=== PATIENT | male | born 1970 | race Caucasian/White ===

== ENCOUNTER 2016-12-09 19:53 | Emergency (ER) | payer OTHER ==
[~2016-12-09] VITALS: Ht 177.8 cm; Wt 79.1 kg
[2016-12-09 20:07] VITALS: BP 126/80; PULSE 93; RESP 18; O2SAT 95
[2016-12-09 20:36] LABS: BASOPHILS % (AUTO) 0.3 % (0-3); EOSINOPHILS % (AUTO) 5.8 % (0-5); MONOCYTES % (AUTO) 5.4 % (4-12); Mean Corpuscular Hemoglobin 30.6 pg (27.0-35.0); Mean Corpuscular Volume 94.7 fL (81-100); Platelet Count 357 bil/L (150-400)
--- NOTE | 2016-12-09 21:47 | ED.REPORT ---
HPI-General Illness Date of Service Dec 09, 2016 ED Provider: Dr. Ricco Robertson The patient is a 46 year old male who presents to the ED due to an itchy and painful insect bite to the anterior right wrist onset yesterday. Patient has diffuse eczema on his hands, arms, back and bilateral thighs. He also reports numbness in his right foot and sciatic pain. Nursing Notes Stated Complaint: BUMPS ON SKIN,NUMBNESS IN FEET Chief Complaint: General Complaint Nursing Notes Reviewed: Yes Allergies: Coded Allergies: codeine (Verified Allergy, Mild, 12/09/16) stomach cramp Scheduled Ceramides 1,3,6-11 (Cerave) 453 Gm Cream..g. 453 GM TP BID Cetirizine HCl (Zyrtec) 10 Mg Capsule 10 MG PO HS Triamcinolone Acet (Triamcinolone Acetonide Cream) 1 Applic/0.25 Gm Cr 1 APPLIC EXT BID Scheduled PRN Ibuprofen (Ibuprofen) 600 Mg Tablet 600 MG PO QID PRN PRN For Pain General Time Seen by MD: 21:47 Chief Complaint Rash Hx Obtained From: Patient Arrived By: Walk-in Sudden in Onset?: Yes Onset Occurred: Yesterday Symptom Duration: Since onset Location: : Wrist right Quality: Itching, Painful Radiation: : Does not radiate Severity: Current: Mild Associated with: Reports: Rash Recent Healthcare: No recent doctor visit, No recent hospitalization Similar Sx Previous: No Past Medical History Past Medical History eczema multiple back injuries Smoking History Unknown if Ever Smoker Social History Drug Use: THC Other Social History: Local resident Ambulatory Status Independent Review of Systems Full Review of Systems GI: Denies: Abdominal pain Musculoskeletal: Reports: Back pain, Lumbar pain, Denies: Joint swelling, Neck pain Skin: Reports Itching, Reports Rash (insect bite anterior right wrist ) Neurologic: Reports: Numbness (right foot numbness) Complete sys rev & neg: except as marked. Physical Exam Vital Signs Vital Signs Date Time Temp Pulse Resp B/P Pulse Ox O2 Delivery O2 Flow Rate FiO2 12/09/16 23:40 37 68 18 130/73 97 Room Air 12/09/16 20:07 36.4 93 18 126/80 95 Room Air Initial VS: Reviewed General/Constitutional: Awake, Alert, No acute distress, Cooperative Head / Eyes: Atraumatic, Normocephalic, PERRL, EOMI Neck: Atraumatic, Supple Flank / Spine / Paraspinal: Positive: Lumbar spine tender... (L5 S1) Upper Extremities Upper Extremity / MS: Atraumatic, Inspection NL, No deformity Wrist / Hand: Neurologic intact, Vascular intact, No ligamentous injury Trauma / Burn / Environmental: Positive: Bite injury excoriation and discharge from insect bite anterior right wrist Ankle / Foot: Atraumatic, Inspection NL, No deformity Color / Condition: Positive: Rash present eczema grossly excoriated on bilateral hands and lower back linear rake molina on flank and lower back nodular bites and lesions on neck, fairly excoriated Neurologic: Oriented X3, Speech NL, No motor deficits Interpretation & Diagnostics Lab Results Interpretation Result Diagram: 12/09/16202412/09/162024 Test 12/09/16 20:25 White Blood Count 11.6th/mm3 (3.8-10.1) Red Blood Count 5.33mil/mm3 (4.40-5.80) Hemoglobin 16.3g/dL (13.8-17.2) Hematocrit 50.5% (41.0-50.0) Mean Corpuscular Volume 94.7fL (81-100) Mean Corpuscular Hemoglobin 30.6pg (27.0-35.0) Mean Corpuscular Hemoglobin Concent 32.3% (32.0-37.0) Red Cell Distribution Width 12.3% (12.3-15.4) Platelet Count 357bil/L (150-400) Neutrophils (%) (Auto) 63.0% (40-74) Lymphocytes (%) (Auto) 25.2% (14-46) Monocytes (%) (Auto) 5.4% (4-12) Eosinophils (%) (Auto) 5.8% (0-5) Basophils (%) (Auto) 0.3% (0-3) Sodium Level 138mEq/L (134-144) Potassium Level 4.0mEq/L (3.5-5.2) Chloride Level 98mEq/L (97-108) Carbon Dioxide Level 27mmol/L (18-29) Blood Urea Nitrogen 18mg/dL (6-24) Creatinine 0.72mg/dL (0.76-1.27) Estimat Glomerular Filtration Rate 124mL/min (>59) Glucose Level 131mg/dL (60-99) Calcium Level 9.8mg/dL (8.5-10.1) Total Bilirubin 0.8mg/dL (0.0-1.2) Aspartate Amino Transf (AST/SGOT) 52U/L (0-50) Alanine Aminotransferase (ALT/SGPT) 54U/L (0-44) Alkaline Phosphatase 87U/L (25-150) Total Protein 8.3g/dL (6.4-8.4) Albumin 4.1g/dL (3.4-5.0) Hold Jaffe Top Tube Received (Received) X-Ray Interpretation Xray Interpretation: BACK X-RAY IMPRESSION: no acute findings Interpretation / Wet Read by: Wet read ED physician Re-Eval/Medical Decision Med Decision/Clinical Course 38-year-old history of eczema presents with multiple unrelated complaints. He has insect bites on his neck and wrist. One is excoriated mildly infected. He has generalized eczema and is not on any treatment for that presently. Provided with Kenalog cream and Claritin. He has incidental findings of decreased sensation in the L5-S1 distribution consistent with chronic sciatica. L spines essentially unremarkable with minor degenerative changes. Discharged to outpatient follow-up. Counseled Regarding: Diagnosis, Lab results, Need for follow-up, When/why to return to ED Discharge & Departure Primary Impression: Eczema Eczema type: unspecified Qualified Code: L30.9 - Dermatitis, unspecified Additional Impressions: Sciatica Laterality: bilateral Qualified Code: M54.31 - Sciatica, right side Insect bites Encounter type: initial encounter Qualified Code: W57.XXXA - Bitten or stung by nonvenomous insect and other nonvenomous arthropods, initial encounter Disposition: Home Discharge Condition All VS Reviewed: Yes Condition: Stable Patient Instructions: Eczema (ED) Additional Instructions: Thank you for entrusting us with your care today. You have eczema, complicated by insect bites. Apply antibiotic ointment to the bite on your wrist that has become infected. Apply Kenalog cream to the eczema affected areas. Do not apply Kenalog to your face. Use a moisturizer at least twice daily. The best available is called CeraVe, and this is available in large problems at [facility] or any drug store. Shower daily with a nondrying soap such as Neutrogena, or use Cetaphil cleanser , which is also widely available [id number]. You can use Zyrtec or Claritin daily for itch. I have attached a referral to the [facility], where you can pursue follow up care with a primary care physician. Return to the Emergency Department if you experience any new or worsening symptoms. Your feet symptoms appear to be from pressure on the nerve. Your x-ray does not show a fracture or dislocation. Follow up with your doctor in establish local care. You can use ibuprofen four times daily.. Referrals: [facility] (PCP) [facility] Att[facility] Portion of this note were transcribed by Ariela Ortiz. I, Dr. Robertson, personally performed the history, physical exam, and medical decision-making: I reviewed and confirmed the accuracy for the information in the transcribed note. Signed by: sharad Vang, 12/10/16 0030 copies to: [facility] Ricco Robertson MD Dec 09, 2016 21:47 Ariela Ortiz Dec 09, 2016 22:02
[2016-12-09] MEDS ORDERED: CERA453C2 TP (22:51)
[2016-12-09] MEDS ORDERED: CETI10CA PO (22:51)
[2016-12-09] MEDS ORDERED: KEN25CR EXT (22:51)
[2016-12-09] MEDS ORDERED: IBUP-1827 PO (22:53)
[2016-12-09 23:40] VITALS: BP 130/73; PULSE 68; RESP 18; O2SAT 97
--- NOTE | 2016-12-10 08:44 | DRSVH ---
PROCEDURE: X-RAY LUMBAR SPINE, 2 OR 3 VIEW INDICATIONS: L5-S1 numbness TECHNIQUE: 3 views of the lumbar spine were acquired. COMPARISON: None. FINDINGS: Bones: There are 5 lumbar-type vertebral bodies. The lowest intervertebral disk space is designated a s L5-S1. The vertebral body heights are well-maintained without evidence to suggest an acute compress ion fracture. The bone mineralization is within normal limits. Grade 1 retrolisthesis of L2 on L3 and L3 on L4 is present without a definite pars defect evident. M oderate multilevel degenerative changes of the lumbar spine are primarily evident involving the facet joints. Mild areas of disc height loss are noted. There straightening of the normal lumbar lordosi s. Mild degenerative changes of the sacroiliac joints are present. Soft tissues: The soft tissues of the imaged abdomen and pelvis are within normal limits. IMPRESSION: 1. No acute osseous abnormality of the lumbar spine. 2. Moderate degenerative changes of the lumbar spine are more prominent involving the lower lumbar f acet joints. 3. Straightening of the normal lumbar lordosis with areas of minimal spondylolisthesis is felt to be degenerative. Dictated by: Cameron Vicnete M.D. on 12/10/2016 at 8:41 Approved by: Cameron Vicente M.D. on 12/10/2016 at 8:43
== END 2016-12-09 23:41 | disposition home or self-care (01) ==
LOC: SED 19:53
DX: L30.9 Dermatitis, unspecified (principal); M54.31 Sciatica, right side; Z79.1 Long term (current) use of non-steroidal anti-inflammatories (NSAID); W57.XXXA Bitten or stung by nonvenomous insect and other nonvenomous arthropods, initial encounter; Y93.89 Activity, other specified; Y99.8 Other external cause status; Y92.9 Unspecified place or not applicable; Z88.5 Allergy status to narcotic agent